=== PATIENT | female | born 1970 | race Caucasian/White ===

== ENCOUNTER 2017-08-25 09:50 | Day surgery (SDC) | payer OTHER ==
[~2017-08-25] VITALS: Ht 180.3 cm; Wt 103.0 kg
[~2017-08-25 09:50] MED LIST: CALCIUM + D3 E1 EACH PO; EFFEXOR XR150 MG PO; IBUPROFEN200 M1 PO; MULTIPLE VITAM1 EACH PO
[2017-08-25 10:16] VITALS: BP 119/83
[2017-08-25 10:42] LABS: HEMATOCRIT 40.9 % (36.0-46.0); MCH 29.2 PG (29.0-34.0); MCHC 33.7 G/DL (30.0-36.0); MCV 86.7 FL (83-99); MEAN PLAT.VOLUME 10.6 uM^3 (9.5-12.4); PLATELET COUNT 215 K/uL (156-360); RBC DIS.WIDTH-CV 13.1 % (11.8-14.6); RBC DIS.WIDTH-SD 41.2 % (39-53); RED BLOOD COUNT 4.72 M/uL (3.80-5.20); WHITE BLOOD COUNT 5.5 K/uL (4.1-10.2)
[2017-08-25 14:00] VITALS: BP 136/81
[2017-08-25 14:58] VITALS: BP 132/80
== END 2017-08-25 15:10 | disposition home or self-care (01) ==
LOC: SDC 09:50
PROVIDERS: Orthopaedic Surgery
PROC: 0SBD4ZZ Excision of Left Knee Joint, Percutaneous Endoscopic Approach (ICD-10-PCS; principal; 2017-08-25)
DX: S83.272A Complex tear of lateral meniscus, current injury, left knee, initial encounter (principal); S83.8X2A Sprain of other specified parts of left knee, initial encounter; M25.462 Effusion, left knee; Y93.B9 Activity, other involving muscle strengthening exercises; Z88.0 Allergy status to penicillin; Z88.2 Allergy status to sulfonamides; Z98.84 Bariatric surgery status
CPT/HCPCS: 85027; J0171; J0690; J1100; J1170; J2405; J2795; J3010